=== PATIENT | male | born 1940 | race Caucasian/White ===

== ENCOUNTER 2018-03-23 15:30 | Emergency (ER) | payer MEDICARE ==
--- NOTE | 2018-03-23 16:14 | ER Document Report ---
ED Medical Screen (RME) - General Chief Complaint: Abnormal Lab Results Stated Complaint: ABNORMAL LAB RESULTS Time Seen by Provider: 03/23/18 16:07 Notes: RAPID MEDICAL EVALUATION DISCLOSURE I have seen this patient as part of a Rapid Medical Evaluation and, if applicable, placed any initially appropriate orders. The patient will be seen and fully evaluated, including a full history and physical exam, by a provider ( in Main ED or Fast Track) when a room becomes available. 77-year-old male sent here from "[facility] urgent care" for reportedly having infection. The patient or family do not know specifically what was found to be abnormal but states that blood work and imaging was done. I have called [facility] [address] [facility] (did not pickle cutter the phone) as well as the [facility] urgent care across the street from the hospital on [facility] (state they do not know a patient by this name). The patient states he has been having some lower abdominal pain for the past 3 weeks with nausea but no vomiting. Intermittent diarrhea. Some dysuria intermittently. Denies prior history of colitis diverticulitis. EXAM Clear to auscultation bilaterally TTP suprapubic, left lower/upper quadrants TRAVEL OUTSIDE OF THE [place] IN LAST 30 DAYS: No - Related Data Allergies/Adverse Reactions: No Known Allergies Allergy (Verified 03/23/18 15:31) Home Medications: flomax, allopurinol, mucinex, spiriva, simvistatin, clopidogrel, ASA, fish oil, Diclopenacsoder, adodart, metoporlol, HCTZ, cyclobenzaprine, pascale, calcium, donedezil. Past Medical History - Social History Chew tobacco use (# tins/day): No Frequency of alcohol use: None Drug Abuse: None - Past Medical History Cardiac Medical History: Reports: Hx Hypercholesterolemia, Hx Hypertension Pulmonary Medical History: Reports: Hx COPD Renal/ Medical History: Denies: Hx Peritoneal Dialysis Past Surgical History: Reports: Hx Cardiac Catheterization - Immunizations Hx Diphtheria, Pertussis, Tetanus Vaccination: Yes Physical Exam - Vital signs Vitals: Temp Pulse Resp BP Pulse Ox 97.8 F 81 20 107/45 L 96 03/23/18 15:40 03/23/18 15:40 03/23/18 15:40 03/23/18 15:40 03/23/18 15:40 Course - Vital Signs Vital signs: Temp Pulse Resp BP Pulse Ox 97.8 F 81 20 107/45 L 96 03/23/18 15:40 03/23/18 15:40 03/23/18 15:40 03/23/18 15:40 03/23/18 15:40
[2018-03-23 17:08] LABS: HEMATOCRIT 32.6 % (37.9-51.0); HEMOGLOBIN 10.9 g/dL (13.5-17.0); MEAN CORPUSCULAR HEMOGLOBIN 31.5 pg (27.0-33.4); MEAN CORPUSCULAR HGB CONC 33.3 g/dL (32.0-36.0); MEAN CORPUSCULAR VOLUME 94 fl (80-97); PLATELET COUNT 261 10^3/uL (150-450); RED BLOOD COUNT 3.45 10^6/uL (4.35-5.55); RED CELL DISTRIBUTION WIDTH 14.8 % (11.5-14.0)
[2018-03-23 17:14] LABS: ALANINE AMINOTRANSFERASE 34 U/L (21-72); ALKALINE PHOSPHATASE 177 U/L (38-126); ANION GAP 14 (5-19); ASPARTATE AMINO TRANSFERASE 30 U/L (17-59); BILIRUBIN,DIRECT 0.5 mg/dL (0.0-0.4); BILIRUBIN,TOTAL 0.5 mg/dL (0.2-1.3); BLOOD UREA NITROGEN 41 mg/dL (7-20); CALCIUM 9.2 mg/dL (8.4-10.2); CARBON DIOXIDE 28 mmol/L (22-30); CHLORIDE 100 mmol/L (98-107); GLUCOSE 123 mg/dL (75-110); LIPASE 29.5 U/L (23-300); SODIUM 142.2 mmol/L (137-145); TOTAL PROTEIN 5.2 g/dL (6.3-8.2)
[2018-03-23 17:33] LABS: ABSOLUTE LYMPHOCYTES# (MANUAL) 2.1 10^3/uL (0.5-4.7); ABSOLUTE MONOCYTES # (MANUAL) 0.4 10^3/uL (0.1-1.4); ABSOLUTE NEUTROPHILS# (MANUAL) 17.6 10^3/uL (1.7-8.2); BAND NEUTROPHILS % (MANUAL) 1 % (3-5); BASOPHILS % (MANUAL) 0 % (0-2); EOSINOPHILS % (MANUAL) 4 % (0-6); LYMPHOCYTES % (MANUAL) 10 % (13-45); MONOCYTES % (MANUAL) 2 % (3-13); SEGMENTED NEUTROPHILS % (MAN) 83 % (42-78); TOTAL CELLS COUNTED 100
[2018-03-23 17:34] LABS: ANISOCYTOSIS SLIGHT; OVALOCYTES SLIGHT; PLATELET COMMENT ADEQUATE; POIKILOCYTOSIS SLIGHT; TOXIC GRANULATION SLIGHT
--- NOTE | 2018-03-23 18:58 | RADIOLOGY REPORT (SQ) ---
EXAM DESCRIPTION: CT ABD/PELVIS WITH IV ONLY COMPLETED DATE/TIME: 03/23/2018 6:20 pm REASON FOR STUDY: LLQ abd pain . Umbilical pain. COMPARISON: CT chest/abdomen/ pelvis 08/25/2010. TECHNIQUE: CT scan of the abdomen and pelvis performed using helical scanning technique with dynamic intravenous contrast injection. No oral contrast. Images reviewed with lung, soft tissue, and bone windows. Reconstructed coronal and sagittal MPR images reviewed. Delayed images for evaluation of the urinary system also acquired. All images stored on PACS. All CT scanners at this facility use dose modulation, iterative reconstruction, and/or weight based d osing when appropriate to reduce radiation dose to as low as reasonably achievable (ALARA). [facility]: Dose Right [facility]: CareDose [facility]: Dose Right [facility]: Teradose 4D [facility]: Comenta TV CONTRAST TYPE AND DOSE: 71 mL Isovue 370- low osmolar. RENAL FUNCTION: Creatinine 1.48 RADIATION DOSE: . LIMITATIONS: None. FINDINGS: LOWER CHEST: Emphysematous changes at the bilateral lung bases. Mild bibasilar atelectasi s. No pleural effusion. The heart is enlarged. Coronary arteries calcifications are present. LIVER: There is diffuse decreased attenuation, most consistent with fatty infiltration. No masses. N o dilated ducts. SPLEEN: There is cholelithiasis. No pericholecystic fluid. PANCREAS: No significant calcifications. No adjacent inflammation or peripancreatic fluid collections . Pancreatic duct not dilated. GALLBLADDER: No identified stones by CT criteria. No inflammatory changes to suggest cholecystitis. ADRENAL GLANDS: No significant masses or asymmetry. RIGHT KIDNEY AND URETER: No solid masses. No significant calcifications. No hydronephrosis or hyd roureter. LEFT KIDNEY AND URETER: No solid masses. No significant calcifications. No hydronephrosis or hydr oureter. AORTA AND VESSELS: Atherosclerotic calcifications in the abdominal aorta and its branches. No abdomi nal aortic aneurysm. RETROPERITONEUM: No retroperitoneal adenopathy, hemorrhage or masses. BOWEL AND PERITONEAL CAVITY: No dilated bowel loops or inflammatory changes. No free fluid or free ai r. APPENDIX: Normal. PELVIS: No mass. No free fluid. The urinary bladder is partially distended. ABDOMINAL WALL: No hernias. BONES: Degenerative disc disease with vacuum disc phenomenon at L5-S1. IMPRESSION: 1. No acute findings in the abdomen or pelvis. 2. Fatty infiltration of the liver. 3. Cholelithiasis. 4. Cardiomegaly. Coronary arteries calcifications. 5. Emphysema. Mild bibasilar atelectasis. TECHNICAL DOCUMENTATION: JOB ID: [id number] [facility] Quality ID # [id number]: Final reports with documentation of one or more dose reduction techniques (e.g., Au tomated exposure control, adjustment of the mA and/or kV according to patient size, use of iterative reconstruction technique) 2010 [employer]- All Rights Reserved Reading location - IP/workstation name: [email or web address]
[2018-03-23] MEDS ORDERED: MORPHINE SULFATE 10 MG/ML INJ IV PRN (18:59)
[2018-03-23] MEDS ORDERED: NORMAL SALINE 1000 ML 1,000 ML IV ONE (18:59)
[2018-03-23] MEDS ORDERED: ONDANSETRON HCL INJ/PF 4 MG/2 ML SDV IV ONE (18:59)
--- NOTE | 2018-03-23 19:00 | ER Document Report ---
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 Patient was seen in urgent care today as he has had 3 weeks of intermittent, cramping, throbbing pain to his lower abdomen. Nothing improves or worsens that pain. He denies history of similar pain in the past. Went to urgent care today, had blood work completed and was informed that he had a very high white blood cell count and was referred to the emergency department for further evaluation given this lab finding. Nothing is new or different regarding his symptoms today. He denies any associated fever, cough, sputum production, headache, neck pain, vomiting or diarrhea. No history of similar symptoms in the past. He does note some difficulty with urination as well as some mild dysuria. TRAVEL OUTSIDE OF THE [place] IN LAST 30 DAYS: No - Related Data Allergies/Adverse Reactions: No Known Allergies Allergy (Verified 03/23/18 15:31) Home Medications: flomax, allopurinol, mucinex, spiriva, simvistatin, clopidogrel, ASA, fish oil, Diclopenacsoder, adodart, metoporlol, HCTZ, cyclobenzaprine, pascale, calcium, donedezil. Past Medical History - General Information source: Patient, Relative - Social History Smoking Status: Current Every Day Smoker Chew tobacco use (# tins/day): No Frequency of alcohol use: None Drug Abuse: None Lives with: Spouse/Significant other Family History: Reviewed & Not Pertinent Patient has suicidal ideation: No Patient has homicidal ideation: No - Past Medical History Cardiac Medical History: Reports: Hx Hypercholesterolemia, Hx Hypertension Pulmonary Medical History: Reports: Hx COPD Renal/ Medical History: Denies: Hx Peritoneal Dialysis Past Surgical History: Reports: Hx Cardiac Catheterization - Immunizations Hx Diphtheria, Pertussis, Tetanus Vaccination: Yes Review of Systems - Review of Systems Notes: Constitutional: Negative for fever. HENT: Negative for sore throat. Eyes: Negative for visual changes. Cardiovascular: Negative for chest pain. Respiratory: Negative for shortness of breath. Gastrointestinal: Positive for abdominal pain, intermittent diarrhea Genitourinary: Positive for urinary hesitancy and dysuria Musculoskeletal: Negative for back pain. Skin: Negative for rash. Neurological: Negative for headaches, weakness or numbness. 10 point ROS negative except as marked above and in HPI. Physical Exam - Vital signs Vitals: Temp Pulse Resp BP Pulse Ox 97.8 F 81 20 107/45 L 96 03/23/18 15:40 03/23/18 15:40 03/23/18 15:40 03/23/18 15:40 03/23/18 15:40 Interpretation: Normal Notes: PHYSICAL EXAMINATION: GENERAL: Well-appearing, well-nourished and in no acute distress. HEAD: Atraumatic, normocephalic. EYES: Pupils equal round and reactive to light, extraocular movements intact, sclera anicteric, conjunctiva are normal. ENT: nares patent, oropharynx clear without exudates. Moist mucous membranes. NECK: Normal range of motion, supple without lymphadenopathy LUNGS: Breath sounds clear to auscultation bilaterally and equal. No wheezes rales or rhonchi. HEART: Regular rate and rhythm without murmurs ABDOMEN: Soft, minimal suprapubic abdominal tenderness but no other localized areas of tenderness, normoactive bowel sounds. No guarding, no rebound. No masses appreciated. EXTREMITIES: Normal range of motion, no pitting or edema. No cyanosis. NEUROLOGICAL: No focal neurological deficits. Moves all extremities spontaneously and on command. PSYCH: Normal mood, normal affect. SKIN: Warm, Dry, normal turgor, no rashes or lesions noted. Course - Re-evaluation Re-evalutation: 03/23/18 18:58 Patient is a 77-year-old male who presents with concerns of a leukocytosis and 3 weeks of intermittent lower abdominal pain. On examination the patient does not have any focal areas of tenderness, rebound or guarding. He does admit to dysuria. His labs are notable for leukocytosis and from the urgent care a markedly elevated CRP. He is also moderately dehydrated by basic metabolic panel findings showing a mild prerenal azotemia. Differential diagnostic considerations include a possible urinary tract infection, less likely acute diverticulitis or acute appendicitis given the duration of symptoms and lack of localized abdominal pain. Patient also does have a remote history of a lymphoma per family but this is a very unclear history as apparently he has never required chemotherapy and has never had a recurrence of findings over the last decade. Nonetheless, his acute leukocytosis could be a re-presentation of this issue but this would not account for his abdominal pain. Awaiting urinalysis and results of CT abdomen pelvis and then will reassess the patient. 03/23/18 22:24 CT unremarkable. Urinalysis is clear. Patient's pain has completely resolved after we performed a straight catheterization and decompress his bladder. I suspect that a large component of the patient's abdominal pain and symptoms is secondary to urinary retention he has a known history of prostatic hypertrophy. I have offered him a Page catheter with a leg bag which she has declined. There is no evidence of an obstructive uropathy on CT for by labs but I have encouraged the patient to follow-up closely with urology as this could be the cause of his abdominal discomfort over the past 3 weeks. On repeat abdominal exam he has no discomfort of any kind in any quadrant. He states he feels well and would like to go home. I have also emphasized that he needs to follow-up with oncology with whom he normally follows annually given his nonspecific leukocytosis today and a known history of possible myeloma versus leukemia in the past. I have emphasized the patient that I am not stating that he is having a recurrence of this illness that given I do not have an etiology for this leukocytosis and he has this history does need to be reassessed. At this time will discharge with return precautions and follow-up recommendations. Verbal discharge instructions given a the bedside and opportunity for questions given. Medication warnings reviewed. Patient is in agreement with this plan and has verbalized understanding of return precautions and the need for primary care follow-up in the next 24-72 hours. - Vital Signs Vital signs: Temp Pulse Resp BP Pulse Ox 97.6 F 75 16 108/52 L 96 03/23/18 23:00 03/23/18 23:00 03/23/18 23:00 03/23/18 23:00 03/23/18 23:00 - Laboratory Result Diagrams: 03/23/18 16:37 03/23/18 16:37 Laboratory results interpreted by me: 03/23/18 03/23/18 03/23/18 16:37 16:37 21:40 WBC 21.0 H RBC 3.45 L Hgb 10.9 L Hct 32.6 L RDW 14.8 H Seg Neuts % (Manual) 83 H Band Neutrophils % 1 L Lymphocytes % (Manual) 10 L Monocytes % (Manual) 2 L Abs Neuts (Manual) 17.6 H Absolute Eos (Manual) 0.8 H BUN 41 H Creatinine 1.64 H Est GFR ( Amer) 49 L Est GFR (Non-Af Amer) 41 L Glucose 123 H Direct Bilirubin 0.5 H Alkaline Phosphatase 177 H Total Protein 5.2 L Albumin 3.0 L Urine Urobilinogen 2.0 H - Diagnostic Test Radiology reviewed: Reports reviewed Discharge - Discharge Clinical Impression: Urinary retention, Intermittent lower abdominal pain Leukocytosis Qualifiers: Leukocytosis type: unspecified Qualified Code(s): D72.829 - Elevated white blood cell count, unspecified Condition: Good Disposition: HOME, SELF-CARE Additional Instructions: Your intermittent abdominal pain may be secondary to urinary retention which means your bladder is not emptying. You need to follow-up with your urologist urgently for further evaluation of this issue as it is likely the cause of your intermittent abdominal pain. As we have discussed, you had a high white blood cell count today. This is not specific to infection and we do not find any specific evidence of infection on your workup today. However, given your history of leukemia versus possible myeloma in the past you need to follow-up urgently with the oncologist that you see annually to have this level rechecked and ensure that you are not having a recurrence of that illness. Return to the emergency department if you have worsening abdominal pain, persistent vomiting, develop a fever greater than 100.4F, or have any other symptoms that are worrisome to you. Referrals: ZULEYMA BERMAN MD [Primary Care Provider] - Follow up as needed
[2018-03-23 21:59] LABS: APPEARANCE,URINE CLEAR; BILIRUBIN,URINE NEGATIVE (NEGATIVE); COLOR,URINE YELLOW; GLUCOSE, URINE NEGATIVE (NEGATIVE); KETONES,URINE NEGATIVE (NEGATIVE); LEUKOCYTE ESTERASE,URINE NEGATIVE (NEGATIVE); NITRITE,URINE NEGATIVE (NEGATIVE); PROTEIN,URINE NEGATIVE (NEGATIVE); URINE SPECIFIC GRAVITY 1.029
[2018-03-23 23:05] VITALS: BP 108/52
== END 2018-03-23 23:05 | disposition home or self-care (01) ==
LOC: ER 15:30
DX: R33.9 Retention of urine, unspecified (principal); R10.30 Lower abdominal pain, unspecified; D72.829 Elevated white blood cell count, unspecified; R19.7 Diarrhea, unspecified; R39.11 Hesitancy of micturition; R30.0 Dysuria; Z79.82 Long term (current) use of aspirin; Z79.899 Other long term (current) drug therapy; F17.200 Nicotine dependence, unspecified, uncomplicated; I10 Essential (primary) hypertension; J44.9 Chronic obstructive pulmonary disease, unspecified
CPT/HCPCS: 99284; 96361; 51701; 96374; 36415; 87040; 87086; 83690; 85025; 80053; 81001; 74177; J2405; J7030

== ENCOUNTER → 2018-03-23 | Outpatient (CLI) | payer MEDICARE ==
[2018-03-23 12:57] LABS: APPEARANCE,URINE CLEAR; BILIRUBIN,URINE NEGATIVE (NEGATIVE); COLOR,URINE AMBER; GLUCOSE, URINE NEGATIVE (NEGATIVE); KETONES,URINE NEGATIVE (NEGATIVE); LEUKOCYTE ESTERASE,URINE NEGATIVE (NEGATIVE); NITRITE,URINE NEGATIVE (NEGATIVE); PROTEIN,URINE NEGATIVE (NEGATIVE); URINE SPECIFIC GRAVITY 1.021
[2018-03-23 13:02] LABS: HEMATOCRIT 34.7 % (37.9-51.0); HEMOGLOBIN 11.6 g/dL (13.5-17.0); MEAN CORPUSCULAR HEMOGLOBIN 31.2 pg (27.0-33.4); MEAN CORPUSCULAR HGB CONC 33.3 g/dL (32.0-36.0); MEAN CORPUSCULAR VOLUME 94 fl (80-97); PLATELET COUNT 265 10^3/uL (150-450); RED BLOOD COUNT 3.71 10^6/uL (4.35-5.55); RED CELL DISTRIBUTION WIDTH 15.2 % (11.5-14.0); WHITE BLOOD COUNT 26.4 10^3/uL (4.0-10.5)
[2018-03-23 13:34] LABS: ALANINE AMINOTRANSFERASE 31 U/L (21-72); ALBUMIN 3.1 g/dL (3.5-5.0); ALKALINE PHOSPHATASE 208 U/L (38-126); AMYLASE 37 U/L (30-110); ANION GAP 12 (5-19); ASPARTATE AMINO TRANSFERASE 36 U/L (17-59); BILIRUBIN,DIRECT 0.5 mg/dL (0.0-0.4); BILIRUBIN,TOTAL 0.5 mg/dL (0.2-1.3); BLOOD UREA NITROGEN 38 mg/dL (7-20); CALCIUM 9.2 mg/dL (8.4-10.2); CARBON DIOXIDE 29 mmol/L (22-30); CHLORIDE 101 mmol/L (98-107); CHOLESTEROL 54.65 mg/dL (0-200); GAMMA-GLUTAMYL TRANSFERASE 115 U/L (8-78); GLUCOSE 111 mg/dL (75-110); LIPASE 26.1 U/L (23-300); POTASSIUM 4.5 mmol/L (3.6-5.0); SODIUM 141.8 mmol/L (137-145); TOTAL PROTEIN 5.3 g/dL (6.3-8.2); TRIGLYCERIDES 149 mg/dL (<150)
[2018-03-23 13:36] LABS: ABSOLUTE LYMPHOCYTES# (MANUAL) 2.6 10^3/uL (0.5-4.7); ABSOLUTE MONOCYTES # (MANUAL) 2.4 10^3/uL (0.1-1.4); ABSOLUTE NEUTROPHILS# (MANUAL) 21.1 10^3/uL (1.7-8.2); BASOPHILS % (MANUAL) 0 % (0-2); EOSINOPHILS % (MANUAL) 1 % (0-6); LYMPHOCYTES % (MANUAL) 10 % (13-45); MONOCYTES % (MANUAL) 9 % (3-13); SEGMENTED NEUTROPHILS % (MAN) 80 % (42-78); TOTAL CELLS COUNTED 100
[2018-03-23 13:38] LABS: ANISOCYTOSIS SLIGHT; PLATELET COMMENT ADEQUATE; TOXIC GRANULATION 1+
[2018-03-23 13:41] LABS: FREE T4 (FREE THYROXINE) 1.07 ng/dL (0.78-2.19)
[2018-03-23 13:50] LABS: C-REACTIVE PROTEIN 238.7 mg/L (<10.0); DIRECT LDL < 30 mg/dL (<100)
[2018-03-23 13:51] LABS: ERYTHROCYTE SEDIMENTATION RATE 60 mm/hr (0-20)
[2018-03-23 13:55] LABS: THYROID STIMULATING HORMONE 2.39 uIU/mL (0.47-4.68)
[2018-03-25 03:36] LABS: CREATININE URINE 121.6 mg/dL (Not Estab.); MICROALBUMIN URINE 3.2 ug/mL (Not Estab.)
[2018-03-25 07:57] LABS: TRIIODOTHYRONINE (T3) 82 ng/dL (71-180)
== END ==
LOC: OD 11:03
PROVIDERS: ATTEND Family Medicine
DX: R11.0 Nausea (principal); I10 Essential (primary) hypertension; R10.9 Unspecified abdominal pain
CPT/HCPCS: 36415; 80053; 80061; 81001; 82043; 82140; 82150; 82570; 82977; 83690; 83735; 84439; 84443; 84480; 85025; 85652; 86140; 87086